=== PATIENT | female | born 1970 | race Two or more races ===

== ENCOUNTER 2018-12-06 09:31 | Outpatient (CLI) | payer OTHER | END 2018-12-06 09:39 | disposition home or self-care (01) | LOC: MAMO-SONO 09:31 | DX: N60.11 Diffuse cystic mastopathy of right breast (principal); Z12.31 Encounter for screening mammogram for malignant neoplasm of breast ==

== ENCOUNTER → 2018-12-06 10:13 | Outpatient (CLI) | payer OTHER | END | disposition home or self-care (01) | LOC: LAB 09:42 | DX: R10.2 Pelvic and perineal pain (principal) ==

== ENCOUNTER 2025-02-22 12:48 | Outpatient (CLI) | payer OTHER | END 2025-02-22 12:57 | disposition home or self-care (01) | LOC: MAMO-SONO 12:48 | PROVIDERS: ATTEND Obstetrics & Gynecology | DX: N60.11 Diffuse cystic mastopathy of right breast (principal) ==